=== PATIENT | male | born 1995 ===

== ENCOUNTER 2016-10-22 05:07 | Emergency (ER) | payer SELFPAY | END 2016-10-22 05:45 | disposition left against medical advice (07) | LOC: ED 05:07 | DX: R42 Dizziness and giddiness (principal); Z53.21 Procedure and treatment not carried out due to patient leaving prior to being seen by health care provider ==

== ENCOUNTER 2018-12-18 15:09 | Emergency (ER) | payer OTHER ==
[2018-12-18 15:17] VITALS: BP 157/82
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
[2018-12-18] MEDS ORDERED: IBUPROFEN PO ONE (16:21)
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
== END 2018-12-18 17:23 | disposition home or self-care (01) ==
LOC: ED 15:09
DX: M79.10 Myalgia, unspecified site (principal); V89.2XXA Person injured in unspecified motor-vehicle accident, traffic, initial encounter; Y93.89 Activity, other specified; Y92.89 Other specified places as the place of occurrence of the external cause; Y99.8 Other external cause status
CPT/HCPCS: 72040

== ENCOUNTER 2019-05-31 13:31 | Emergency (ER) | payer SELFPAY ==
[2019-05-31] MEDS ORDERED: diphenhydrAMINE 50 MG/ML VIAL IV ONE (14:55)
[2019-05-31] MEDS ORDERED: EPINEPHrine/PF (1:1,000) 1 MG/1 ML INJ SUB-Q ONE (14:55)
[2019-05-31] MEDS ORDERED: dexAMETHasone 20 MG/5 ML VIAL IV ONE (14:55)
[2019-05-31] MEDS ORDERED: FAMOTIDINE 20 MG/2 ML INJ IV ONE (14:55)
--- NOTE | 2019-05-31 14:55 | Event Note ---
ED Screening Note ED Screening Note: pt presents with left frontal dental pain states he had a crown but it came off two weeks ago states he took advil, aspirin, ibuprofen no new foods, detergents, soaps lotions upper lip swelling last night no difficulty breathing, no difficulty swallowing no daily meds This initial assessment/diagnostic orders/clinical plan/treatment(s) is/are subject to change based on patients health status, clinical progression and re- assessment by fellow clinical providers in the ED. Further treatment and workup at subsequent clinical providers discretion. Patient/guardian urged not to elope from the ED as their condition may be serious if not clinically assessed and managed. Initial orders include: IV dex, IV benadryl, IV pepcid, sq epi, quality assurance monitor final
--- NOTE | 2019-05-31 15:21 | Emergency Department Report ---
ED Allergic Reaction HPI - General Chief complaint: Allergic Reaction Stated complaint: MOUTH/LIP SWELLING Time Seen by Provider: 05/31/19 14:51 Source: patient Mode of arrival: Ambulatory Limitations: No Limitations - History of Present Illness Initial Comments: Patient is 23 years old male with no significant past medical history. Patient presented to the ER complaining of isolated upper lip swelling started this morning. Patient stated that he had a dental caries causing him pain so he took ibuprofen and aspirin yesterday. Patient denies any tongue swelling, difficulty breathing or difficulty swallowing. No skin rash or hives. MD Complaint: allergic reaction, facial swelling -: This morning Exposure: medication Symptoms: lip swelling Severity: mild Treatment Prior to Arrival: none Previous Allergy History: none - Related Data Previous Rx's Medication Instructions Recorded Last Taken Type Cyclobenzaprine [Flexeril] 10 mg PO TID PRN #10 tablet 12/18/18 Unknown Rx Ibuprofen [Motrin] 800 mg PO Q8HR PRN #20 tablet 12/18/18 Unknown Rx predniSONE [Deltasone] 20 mg PO DAILY #5 tablet 12/18/18 Unknown Rx Allergies Allergy/AdvReac Type Severity Reaction Status Date / Time Sulfa (Sulfonamide Allergy Unknown Verified 12/18/18 15:17 Antibiotics) ED Review of Systems ROS: Stated complaint: MOUTH/LIP SWELLING Other details as noted in HPI Comment: All other systems reviewed and negative Constitutional: denies: chills, fever Respiratory: denies: cough, shortness of breath, SOB with exertion, wheezing Cardiovascular: denies: chest pain Gastrointestinal: denies: abdominal pain, nausea Musculoskeletal: denies: back pain Neurological: denies: headache, weakness, numbness, paresthesias, confusion, abnormal gait ED Past Medical Hx - Past Medical History Previous Medical History?: No Additional medical history: anxiety - Surgical History Past Surgical History?: No - Social History Smoking Status: Never Smoker Substance Use Type: None - Medications Home Medications: Home Medications Medication Instructions Recorded Confirmed Last Taken Type Cyclobenzaprine [Flexeril] 10 mg PO TID PRN #10 tablet 12/18/18 Unknown Rx Ibuprofen [Motrin] 800 mg PO Q8HR PRN #20 tablet 12/18/18 Unknown Rx predniSONE [Deltasone] 20 mg PO DAILY #5 tablet 12/18/18 Unknown Rx ED Physical Exam - General Limitations: No Limitations General appearance: alert, in no apparent distress - Head Head exam: Present: atraumatic, normocephalic, normal inspection - Eye Eye exam: Present: normal appearance, PERRL - ENT ENT exam: Present: normal orophraynx, mucous membranes moist, TM's normal bilaterally, other (Mild upper lip swelling) - Neck Neck exam: Present: normal inspection, full ROM. Absent: tenderness, meningismus, lymphadenopathy, thyromegaly - Respiratory Respiratory exam: Present: normal lung sounds bilaterally. Absent: respiratory distress, wheezes, rales, rhonchi, chest wall tenderness - Cardiovascular Cardiovascular Exam: Present: regular rate, normal rhythm, normal heart sounds - GI/Abdominal GI/Abdominal exam: Present: soft, normal bowel sounds. Absent: distended, tenderness, guarding, rebound, rigid - Extremities Exam Extremities exam: Present: normal inspection, full ROM, normal capillary refill. Absent: pedal edema, calf tenderness - Back Exam Back exam: Present: normal inspection, full ROM. Absent: CVA tenderness (R), CVA tenderness (L), muscle spasm, paraspinal tenderness, vertebral tenderness - Neurological Exam Neurological exam: Present: alert, oriented X3, CN II-XII intact, normal gait - Psychiatric Psychiatric exam: Present: normal mood - Skin Skin exam: Present: warm, intact, normal color ED Course Vital Signs 05/31/19 05/31/19 05/31/19 13:36 13:37 14:52 Temperature 99.0 F 99.0 F 99.0 F Pulse Rate 111 H 109 H 103 H Respiratory 18 18 18 Rate Blood Pressure 172/121 178/121 Blood Pressure 171/121 [Right] O2 Sat by Pulse 98 99 Oximetry 05/31/19 05/31/19 05/31/19 15:14 15:16 15:30 Temperature Pulse Rate 107 H 111 H 96 H Respiratory 11 L 10 L 17 Rate Blood Pressure 173/115 Blood Pressure [Right] O2 Sat by Pulse 95 97 95 Oximetry 05/31/19 05/31/19 05/31/19 15:36 15:38 15:46 Temperature Pulse Rate 88 Respiratory 18 Rate Blood Pressure 171/118 173/115 Blood Pressure [Right] O2 Sat by Pulse 100 98 Oximetry 05/31/19 05/31/19 05/31/19 16:00 16:16 17:20 Temperature Pulse Rate 93 H 90 86 Respiratory 14 12 13 Rate Blood Pressure 173/115 162/108 162/108 Blood Pressure [Right] O2 Sat by Pulse 96 94 96 Oximetry ED Medical Decision Making - Medical Decision Making Patient is 23 years old male with no significant past medical history. Patient presented to the ER complaining of isolated upper lip swelling started this morning. Patient stated that he had a dental caries causing him pain so he took ibuprofen and aspirin yesterday. Patient denies any tongue swelling, difficulty breathing or difficulty swallowing. No skin rash or hives. Patient observed in the ER. Patient given Decadron, Benadryl and Pepcid. Patient found to have significantly high blood pressure of 180/117. Patient given clonidine 0.2 mg which improved his blood pressure to 150/90. Patient is denying any headache, difficulty breathing or difficulty swallowing. Patient d ischarged in a stable condition and advised to avoid aspirin and ibuprofen. Patient also advised to follow-up with his primary care physician in the next 2 to 3 days and to return to the ER if he develop any new symptoms. Critical care attestation.: If time is entered above; I have spent that time in minutes in the direct care of this critically ill patient, excluding procedure time. ED Disposition Clinical Impression: Allergic reaction, Malignant hypertension Disposition: DC- TO HOME OR SELFCARE Is pt being admited?: No Condition: Stable Instructions: Hypertension (ED) Referrals: [facility] [Provider Group] - 3-5 Days
[2019-05-31] MEDS ORDERED: dexAMETHasone 20 MG/5 ML VIAL IM ONE (15:22)
[2019-05-31] MEDS ORDERED: cloNIDine 0.1 MG TAB PO ONE (15:23)
[2019-05-31] MEDS ORDERED: FAMOTIDINE 20 MG TAB PO ONE (15:23)
[2019-05-31] MEDS ORDERED: diphenhydrAMINE 25 MG CAP PO ONE (15:23)
[2019-05-31 17:21] VITALS: BP 162/108
== END 2019-05-31 17:51 | disposition home or self-care (01) ==
LOC: ED 13:31
DX: T78.40XA Allergy, unspecified, initial encounter (principal); I10 Essential (primary) hypertension; F41.9 Anxiety disorder, unspecified; Z79.899 Other long term (current) drug therapy; X58.XXXA Exposure to other specified factors, initial encounter
CPT/HCPCS: 96372; 99283; J1100

== ENCOUNTER 2021-11-21 09:08 | Outpatient (CLI) | payer BC ==
[2021-11-21 12:48] LABS: Hematocrit 47.6 % (35.5-45.6); Hemoglobin 15.3 gm/dl (11.8-15.2); Mean Corpuscular HGB Conc 32 % (32-34); Mean Corpuscular Volume 89 fl (84-94); Platelet Count 238 K/mm3 (140-440); Red Blood Count 5.34 M/mm3 (3.65-5.03); Red Cell Distribution Width 13.3 % (13.2-15.2)
[2021-11-21 13:21] LABS: Alanine Aminotransferase 71 units/L (7-56); Albumin 4.8 g/dL (3.9-5); BUN/Creatinine Ratio 11; Blood Urea Nitrogen 11 mg/dL (9-20); Calcium 9.8 mg/dL (8.4-10.2); Chol/HDL Ratio 8.59 %; HDL Cholesterol 22 mg/dL (40-59); Hemolysis Index 11; LDL Cholesterol,Direct 130 mg/dL (50-130)
[2021-11-21 15:05] LABS: Basophils % (Manual) 0 % (0.0-1.8); Platelet Estimate Consistent w Auto; RBC Morphology Normal; Total Cells Counted 100
== END 2021-11-21 09:09 | disposition home or self-care (01) ==
LOC: LABHHL 09:08
PROVIDERS: ATTEND Internal Medicine
DX: E55.9 Vitamin D deficiency, unspecified (principal); R73.9 Hyperglycemia, unspecified; E66.9 Obesity, unspecified; R53.83 Other fatigue
CPT/HCPCS: 36415; 80053; 80061; 82306; 83036; 85007; 85025; 86592; 86593; 86780